=== PATIENT | male | born 1960 | race Hispanic/Latino ===

== ENCOUNTER 2017-08-27 03:40 | Emergency (ER) | payer OTHER ==
[2017-08-27 03:56] VITALS: RESP 18; TEMP 97.9; O2SAT 98
[2017-08-27 04:40] LABS: BASO # 0.1 K/uL (0.0-0.2); BASO % 0.8 % (0.0-2.0); EOS # 0.3 K/uL (0.0-0.7); EOS % 4.5 % (0.0-4.0); HEMATOCRIT 45.5 % (35.0-51.0); LYMPH # 2.5 K/uL (1.0-4.3); LYMPH % 35.5 % (20.0-40.0); MEAN CELL VOLUME 82.5 fl (80.0-94.0); MEAN CORPUSCULAR HEMOGLOBIN 27.9 pg (27.0-31.0); MEAN CORPUSCULAR HGB CONC 33.9 g/dL (33.0-37.0); MEAN PLATELET VOLUME 8.1 fl (7.2-11.7); MONO # 0.6 K/uL (0.0-0.8); MONO % 8.5 % (0.0-10.0); NEUT # 3.6 K/uL (1.8-7.0); NEUT % 50.7 % (50.0-75.0); NRBC % 0.1 % (0.0-0.0); RED CELL DISTRIBUTION WIDTH 13.2 % (11.5-14.5); WHITE BLOOD COUNT 7.1 K/uL (4.8-10.8)
[2017-08-27 04:50] LABS: BLOOD UREA NITROGEN 19 mg/dl (9-20); CALCIUM 9.9 mg/dL (8.4-10.2); CARBON DIOXIDE 26 mmol/L (22-30); CHLORIDE 103 mmol/L (98-107); GFR AFRICAN-AMERICAN > 60; GLUCOSE,RANDOM 98 mg/dL (75-110); POTASSIUM 3.9 MMOL/L (3.6-5.0); SODIUM 144 mmol/l (132-148)
--- NOTE | 2017-08-27 04:54 | CT ---
EXAM: CT Head Without Intravenous Contrast CLINICAL HISTORY: 57 years old, male; Pain; Headache TECHNIQUE: Axial computed tomography images of the head/brain without intravenous contrast. All CT scans at this facility use one or more dose reduction techniques, viz.: automated exposure control; ma/kV adjustment per patient size (including targeted exams where dose is matched to indication; i.e. head); or iterative reconstruction technique. Coronal and sagittal reformatted images were created and reviewed. COMPARISON: CT HEAD OR BRAIN W/O CONT 07/25/2013 6:22:34 AM FINDINGS: Brain: Minimal atrophy. No intracranial hemorrhage. No mass. No definite edema. Ventricles: No hydrocephalus. Bones/joints: No acute fracture. Soft tissues: Unremarkable. Sinuses: Scattered minimal mucosal thickening. Mastoid air cells: No mastoid effusion. Orbits: Unremarkable as visualized. IMPRESSION: 1. No acute intracranial abnormality. 2. Incidental/non-acute findings are described above.
[2017-08-27 05:19] VITALS: BP 142/88
--- NOTE | 2017-08-27 05:28 | ED PDOC ---
HPI: Headache Time Seen by Provider: 08/27/17 03:47 Chief Complaint (Nursing): Headache Chief Complaint (Provider): Headache History Per: Patient History/Exam Limitations: no limitations Onset/Duration Of Symptoms: Hrs (before going to bed) Current Symptoms Are (Timing): Still Present Additional Complaint(s): 57 year old male presents to ED with complaints of headache since going to bed and has a past medical history of Hypertension. Patient notes that after waking up, he had a systolic blood pressure of 210. Notes that he then took his medication, showered, and arrived to ED. States that upon arrival, symptoms have nearly resolved. Admits to being intermittently noncompliant with Benazepril and Amlodipine (takes it weekly instead of daily) (+) dizziness, (-) chest pain or syncope. PCP: Dr. Mae Past Medical History Reviewed: Historical Data, Nursing Documentation, Vital Signs Vital Signs: Last Vital Signs Temp 97.9 F 08/27/17 03:53 Pulse 67 08/27/17 03:53 Resp 18 08/27/17 03:53 BP 142/88 08/27/17 05:19 Pulse Ox 98 08/27/17 03:53 - Medical History PMH: HTN - Surgical History Surgical History: Tonsillectomy Denies: No Surg Hx - Family History Family History: States: No Known Family Hx - Living Arrangements Living Arrangements: With Family - Social History Current smoker - smoking cessation education provided: No Ex-Smoker (has not smoked in the last 12 months): No Alcohol: None Drugs: Cannabis - Home Medications Home Medications: Ambulatory Orders Medication Instructions Recorded Benazepril/Hydrochlorothiazide 1 tab PO DAILY 10/18/16 [Benazepril HCl/Hydrochlorothiazide 20 mg-25 M] amLODIPine [Norvasc] 5 mg PO DAILY 10/18/16 Naproxen [Naprosyn] 500 mg PO Q12 PRN #20 tablet 10/19/16 - Allergies Allergies/Adverse Reactions: Allergies Allergy/AdvReac Type Severity Reaction Status Date / Time No Known Allergies Allergy Verified 10/18/16 21:45 Review of Systems ROS Statement: Except As Marked, All Systems Reviewed And Found Negative Cardiovascular: Negative for: Chest Pain Neurological: Positive for: Headache, Dizziness. Negative for: Other ((-) syncope) Physical Exam - Reviewed Nursing Documentation Reviewed: Yes Vital Signs Reviewed: Yes - Physical Exam Appears: Positive for: Non-toxic, No Acute Distress Head Exam: Positive for: ATRAUMATIC, NORMAL INSPECTION, NORMOCEPHALIC Skin: Positive for: Normal Color, Warm, Dry Eye Exam: Positive for: EOMI, Normal appearance, PERRL ENT: Positive for: Normal ENT Inspection Neck: Positive for: Normal, Painless ROM Cardiovascular/Chest: Positive for: Regular Rate, Rhythm, Bradycardia. Negative for: Murmur Respiratory: Positive for: Normal Breath Sounds. Negative for: Respiratory Distress Gastrointestinal/Abdominal: Positive for: Normal Exam, Soft. Negative for: Tenderness Back: Positive for: Normal Inspection Extremity: Positive for: Normal ROM. Negative for: Deformity Neurologic/Psych: Positive for: Alert, Oriented. Negative for: Motor/Sensory Deficits - Laboratory Results Result Diagrams: 08/27/17 04:39 08/27/17 04:39 - ECG ECG: Positive for: Interpreted By Me, Viewed By Me ECG Rhythm: Positive for: Normal QRS, Sinus Bradycardia Rate: 52 O2 Sat by Pulse Oximetry: 98 (RA) Pulse Ox Interpretation: Normal Medical Decision Making Medical Decision Makin Initial impression: hypertensive urgency, headache DDx: rule out intracranial bleeding Initial plan: * Labs * CT HEAD * EKG 0454 CT HEAD FINDINGS Brain: Minimal atrophy. No intracranial hemorrhage. No mass. No definite edema. Ventricles: No hydrocephalus. Bones/joints: No acute fracture. Soft tissues: Unremarkable. Sinuses: Scattered minimal mucosal thickening. Mastoid air cells: No mastoid effusion. Orbits: Unremarkable as visualized. IMPRESSION: 1. No acute intracranial abnormality. 2. Incidental/non-acute findings are described above. Labs WNL. Patient is stable for discharge home. Scribe Attestation: Documented by Diane Kerr acting as a scribe for Alisa Hernandez MD. Scribe Attestation: All medical record entries made by the Scribe were at my direction and personally dictated by me. I have reviewed the chart and agree that the record accurately reflects my personal performance of the history, physical exam, medical decision making, and the department course for this patient. I have also personally directed, reviewed, and agree with the discharge instructions and disposition. Disposition - Clinical Impression Clinical Impression: Headache, Hypertension - Patient ED Disposition Is Patient to be Admitted: No Doctor Will See Patient In The: Office Counseled Patient/Family Regarding: Studies Performed, Diagnosis, Need For Followup - Disposition Referrals: Demetris Mae MD [Primary Care Provider] - Disposition: Routine/Home Disposition Time: 05:00 Condition: GOOD Additional Instructions: Take your medications daily. Follow up with your PCP In 2-3 days. Instructions: Hypertension (ED), General Headache (ED) Forms: [employer] ([place])
[2017-08-27 05:32] VITALS: PULSE 52
--- NOTE | 2017-08-28 09:42 | CARD ---
APPROVED REPORT EKG Measurement Heart [id number] <Conclusion> Sinus bradycardia Inferior infarct, age undetermined Abnormal ECG
== END 2017-08-27 05:36 | disposition home or self-care (01) ==
LOC: H.ER 03:40
DX: I10 Essential (primary) hypertension (principal); R51 Headache

== ENCOUNTER 2018-04-23 17:42 | Emergency (ER) | payer OTHER ==
[2018-04-23 18:22] VITALS: RESP 18; TEMP 98.5
--- NOTE | 2018-04-23 21:54 | ED PDOC ---
HPI: General Adult Time Seen by Provider: 04/23/18 19:24 Chief Complaint (Nursing): Dizziness/Lightheaded Chief Complaint (Provider): dizziness History Per: Patient History/Exam Limitations: no limitations Onset/Duration Of Symptoms: Days (1 month), Intermittent Episodes Current Symptoms Are (Timing): Intermittent Episodes Severity: Mild Recently: Treated By A Physician Additional Complaint(s): 58yo male c/o positional dizziness only positional when places head back. Came to ED requesting MRI but has Rx from Dr Trujillo for outpatient MRI. Denies acute change in symptoms. Denies headache, syncope, change in coordination speech, balance, strength, current neck pain or vision. Has ?EEG (2 hour test?) tomr w Dr Trujillo. Denies chest pain, SOB, fever. Notes ongoing urinary symptoms hes known to have elevated PSA hes due to see urologist but unsure what name. Past Medical History Reviewed: Historical Data, Nursing Documentation, Vital Signs Vital Signs: Last Vital Signs Temp 98.5 F 04/23/18 18:17 Pulse 64 04/23/18 18:17 Resp 18 04/23/18 18:17 BP 173/101 H 04/23/18 18:17 Pulse Ox 99 04/23/18 18:17 - Medical History PMH: HTN - Surgical History Surgical History: Tonsillectomy - Family History Family History: States: Unknown Family Hx - Living Arrangements Living Arrangements: With Family - Home Medications Home Medications: Ambulatory Orders Medication Instructions Recorded Benazepril/Hydrochlorothiazide 1 tab PO DAILY 10/18/16 [Benazepril HCl/Hydrochlorothiazide 20 mg-25 M] amLODIPine [Norvasc] 5 mg PO DAILY 10/18/16 Naproxen [Naprosyn] 500 mg PO Q12 PRN #20 tablet 10/19/16 - Allergies Allergies/Adverse Reactions: Allergies Allergy/AdvReac Type Severity Reaction Status Date / Time No Known Allergies Allergy Verified 10/18/16 21:45 Review of Systems Constitutional: Negative for: Fever Cardiovascular: Negative for: Chest Pain, Palpitations, Orthopnea Respiratory: Negative for: Cough Gastrointestinal: Negative for: Nausea, Abdominal Pain Genitourinary Male: Positive for: Frequency. Negative for: Dysuria Musculoskeletal: Negative for: Neck Pain, Back Pain Skin: Negative for: Rash Neurological: Positive for: Dizziness. Negative for: Weakness, Numbness, Incoordination, Change in Speech, Confusion, Seizures, Headache Psych: Negative for: Anxiety Physical Exam - Reviewed Nursing Documentation Reviewed: Yes Vital Signs Reviewed: Yes - Physical Exam Appears: Positive for: Well, Non-toxic, No Acute Distress Head Exam: Positive for: ATRAUMATIC, NORMAL INSPECTION, NORMOCEPHALIC Skin: Positive for: Normal Color, Warm, DRY Eye Exam: Positive for: EOMI, Normal appearance, PERRL ENT: Positive for: Normal ENT Inspection Neck: Positive for: Normal, Painless ROM Cardiovascular/Chest: Positive for: Regular Rate, Rhythm Respiratory: Positive for: CNT, Normal Breath Sounds Gastrointestinal/Abdominal: Positive for: Normal Exam, Soft Back: Positive for: Normal Inspection Extremity: Positive for: Normal ROM Neurologic/Psych: Positive for: Alert, Oriented, Gait (normal) - ECG O2 Sat by Pulse Oximetry: 99 Medical Decision Making Medical Decision Making: pt has Rx for MRI, no indicated for emergent imaging Patient refused bloodwork and EKG, states had bloodwork via PMD in [place] last week and has cardiology appt tomorrow but couldnt remember name of surgical dressing maker. Only c/o hunger and wishes to leave ED. Gait normal. Explained importance of followup, provided additional name contact of urology [facility] for PSA eval and has neuro and cardio followup. Pt is aware of elevated BP and does not wish for treatment here, states he didnt take medication today because was visiting ill mother. Disposition - Clinical Impression Clinical Impression: Dizziness, Hypertension - Patient ED Disposition Is Patient to be Admitted: No - Disposition Referrals: Schuyler Farr Jr., MD [Staff Provider] - Darrin Trujillo MD [Staff Provider] - Disposition: Routine/Home Disposition Time: 21:35 Condition: STABLE Additional Instructions: Followup for surgical dressing maker and neurology recommendations as directed. Instructions: Dizziness, Nonvertigo, (DC) Forms: [employer] (Bengali)
[2018-04-24 05:40] VITALS: BP 195/108; PULSE 72; O2SAT 96
== END 2018-04-23 22:00 | disposition home or self-care (01) ==
LOC: H.ER 17:42
DX: I10 Essential (primary) hypertension (principal); R42 Dizziness and giddiness